=== PATIENT | female | born 1935 | race American Indian/Alaskan Native ===

== ENCOUNTER 2017-12-24 11:42 | Emergency (ER) | payer MEDICARE ==
[2017-12-24 12:25] LABS: Basophils % (Auto) 0.5 % (0.0-1.8); Eosinophils % (Auto) 0.2 % (0.0-4.3); Hematocrit 39.8 % (30.3-42.9); Hemoglobin 13.8 gm/dl (10.1-14.3); Lymphocytes # (Auto) 1.8 K/mm3 (1.2-5.4); Lymphocytes % (Auto) 23.4 % (13.4-35.0); Mean Corpuscular HGB Conc 35 % (30-34); Mean Corpuscular Hemoglobin 33 pg (28-32); Mean Corpuscular Volume 94 fl (79-97); Monocytes # (Auto) 0.4 K/mm3 (0.0-0.8); Monocytes % (Auto) 4.6 % (0.0-7.3); Platelet Count 266 K/mm3 (140-440); Red Blood Count 4.24 M/mm3 (3.65-5.03); Red Cell Distribution Width 14.2 % (13.2-15.2)
[2017-12-24 12:35] LABS: INR 0.93 (0.87-1.13); Partial Thromboplastin Time 25.1 Sec. (24.2-36.6)
[2017-12-24 12:47] LABS: Alanine Aminotransferase 15 units/L (7-56); Albumin 4.2 g/dL (3.9-5); BUN/Creatinine Ratio 20; Blood Urea Nitrogen 18 mg/dL (7-17); Hemolysis Index 11; Lipase 19 units/L (13-60)
--- NOTE | 2017-12-24 14:32 | Emergency Department Report ---
HPI - General Chief Complaint: GI Bleed Time Seen by Provider: 12/24/17 13:51 - HPI HPI: 82-year-old female presents to the emergency department with a complaint of a one-day history of rectal bleeding and some mild generalized abdominal discomfort. She had one episode of nausea and vomiting yesterday but that has since resolved. She denies any fever, dysuria, vaginal bleeding or discharge. She has a history of borderline diabetes, migraine headaches and hypertension. She does present with some elevated blood pressure despite taking her blood pressure medications this morning. She goes to [facility] for primary care. She does not have a field organizer. She has not taken anything for her symptoms prior to presentation. No recent travel or sick contacts at home. ED Past Medical Hx - Past Medical History Previous Medical History?: Yes Hx Hypertension: Yes Hx Diabetes: Yes (diet controlled) Hx Arthritis: Yes Hx Headaches / Migraines: Yes - Surgical History Past Surgical History?: Yes Additional Surgical History: fibroid removal - Social History Smoking Status: Never Smoker Substance Use Type: None - Medications Home Medications: Home Medications Medication Instructions Recorded Confirmed Last Taken Type Ciprofloxacin HCl [Ciprofloxacin 500 mg PO Q12H #14 tab 12/24/17 Unknown Rx TAB] metroNIDAZOLE [Flagyl TAB] 500 mg PO TID #21 tablet 12/24/17 Unknown Rx ED Review of Systems ROS: Stated complaint: BLOOD FROM BUTT Other details as noted in HPI Comment: All other systems reviewed and negative Constitutional: denies: chills, fever Eyes: denies: eye pain, eye discharge, vision change ENT: denies: ear pain, throat pain Respiratory: denies: cough, shortness of breath, wheezing Cardiovascular: denies: chest pain, palpitations Gastrointestinal: abdominal pain, nausea, vomiting, other (rectal bleeding) Genitourinary: denies: urgency, dysuria, discharge Musculoskeletal: denies: back pain, joint swelling, arthralgia Skin: denies: rash, lesions Neurological: denies: headache, weakness, paresthesias Physical Exam - Physical Exam Vital Signs: Vital Signs 12/24/17 12/24/17 11:50 13:58 Temperature 97.9 F Pulse Rate 85 74 Respiratory 16 20 Rate Blood Pressure 157/98 Blood Pressure 189/95 [Left] O2 Sat by Pulse 98 96 Oximetry Physical Exam: GENERAL: The patient is well-developed well-nourished. HENT: Normocephalic. Atraumatic. Patient has moist mucous membranes. EYES: Extraocular motions are intact. Pupils equal reactive to light bilaterally. NECK: Supple. Trachea is midline. CHEST/LUNGS: Clear to auscultation. There is no respiratory distress noted. HEART/CARDIOVASCULAR: Regular. There is no tachycardia. There is no murmur. ABDOMEN: Abdomen is soft. Mild generalized tenderness to palpation. No guarding. Patient has normal bowel sounds. There is no abdominal distention. SKIN: Skin is warm and dry. NEURO: The patient is awake, alert, and oriented. The patient is cooperative. The patient has no focal neurologic deficits. The patient has normal speech. MUSCULOSKELETAL: There is no tenderness or deformity. There is no limitation range of motion. There is no evidence of acute injury. RECTAL: No hemorrhoid or lesions. There is a small amount of gross blood seen that is positive on guaiac testing. ED Course Vital Signs 12/24/17 12/24/17 11:50 13:58 Temperature 97.9 F Pulse Rate 85 74 Respiratory 16 20 Rate Blood Pressure 157/98 Blood Pressure 189/95 [Left] O2 Sat by Pulse 98 96 Oximetry ED Medical Decision Making - Lab Data Result diagrams: 12/24/17 12:04 12/24/17 12:12 - EKG Data -: EKG Interpreted by Hi EKG shows normal: sinus rhythm, axis (left axis deviation), intervals ( prolonged MA interval, borderline prolonged QTC), QRS complexes, ST-T waves ( flattened T waves) Rate: normal - EKG Data When compared to previous EKG there are: previous EKG unavailable Interpretation: other (sinus rhythm, left axis deviation, prolonged MA interval , borderline prolonged QTC, flattened T waves) - Radiology Data Radiology results: report reviewed EXAM: CT ABDOMEN PELVIS W CON HISTORY: Abd pain, rectal bleeding TECHNIQUE: CT abdomen and pelvis with intravenous contrast PRIORS: None. FINDINGS: No acute abnormality identified in the lung bases. No focal abnormality identified within the liver parenchyma. The spleen demonstrates normal size and attenuation. No pancreatic abnormalities seen. The kidneys demonstrate symmetric contrast enhancement. No evidence of hydronephrosis. The adrenal glands are unremarkable Abdominal aorta is normal in caliber. No pathologically enlarged lymph nodes are identified. Trace of free fluid noted in the lower pelvis. No evidence of small bowel dilatation. There is focal edematous colonic wall thickening from the left transverse colon through the distal descending colon with adjacent fascial thickening and hazy inflammatory change. Urinary bladder is unremarkable. IMPRESSION: Findings most consistent with colitis involving the left colon Trace free fluid noted in the lower pelvis Transcribed By: JV Dictated By: JOCELYN GONZALEZ MD Electronically Authenticated By: JOCELYN GONZALEZ MD Signed Date/Time: 12/24/17 5045 - Medical Decision Making This patient presented with some rectal bleeding with bowel movements that started today as well as some mild abdominal discomfort. Her abdomen is soft, nondistended and has normal bowel sounds there is some mild tenderness to palpation. Patient's labs were unremarkable. Hemoglobin is greater than 13. There is no leukocytosis. Normal electrolytes, no renal insufficiency or significant glucose abnormalities. She has normal belly labs and normal coags. CT of the abdomen and pelvis with IV contrast shows some colitis from the transverse colon distally. This may be the source of the patient's rectal bleeding. However I explained that the patient will need a colonoscopy for further evaluation and rule out malignancy. I spoke with the field organizer coordinator of evaluation, Dr. Reese, who felt that if the patient is hemodynamically stable and the patient can be discharged home for outpatient follow-up on Cipro and Flagyl. Patient did have some elevated blood pressure came down to a more reasonable level with one dose of hydralazine. There is no tachycardia and the patient is afebrile. First and foremost, the patient repeatedly is saying that she does not want to be admitted to the hospital and says that she is willing to follow up outpatient, take the antibiotics compliantly, and return to the emergency department with any worsening of her bleeding, worsening of her abdominal pain, or with any acute distress. Secondly , the patient does not have any leukocytosis, tachycardia, fever and does not appear to have a toxic or rigid abdomen. For these reasons, I feel the patient is safe for discharge home. She was given the prescriptions for antibiotics and outpatient GI referral. - Differential Diagnosis diverticulosis, colitis, hemorrhoids, malignancy Critical Care Time: No Critical care attestation.: If time is entered above; I have spent that time in minutes in the direct care of this critically ill patient, excluding procedure time. ED Disposition Clinical Impression: Colitis, Rectal bleeding Disposition: - TO HOME OR SELFCARE Is pt being admited?: No Condition: Stable Instructions: Rectal Bleeding (ED), Infectious Colitis (ED) Additional Instructions: Take the antibiotics as prescribed. Follow-up with the field organizer as soon as possible. You will most likely need an outpatient colonoscopy to further evaluate the rectal bleeding. However you should return to the emergency department immediately with any increased rectal bleeding, development of fever, worsening of your symptoms, or any acute distress. Prescriptions: Ciprofloxacin HCl [Ciprofloxacin TAB] 500 mg PO Q12H #14 tab metroNIDAZOLE [Flagyl TAB] 500 mg PO TID #21 tablet Referrals: SAMMY REESE MD [Staff Physician] - [place] Forms: Accompanied Note Time of Disposition: 18:01
[2017-12-24] MEDS ORDERED: APRESOLINE IV ONE (14:37)
--- NOTE | 2017-12-24 17:14 | Cat Scan Report ---
FINAL REPORT EXAM: CT ABDOMEN PELVIS W CON HISTORY: Abd pain, rectal bleeding TECHNIQUE: CT abdomen and pelvis with intravenous contrast PRIORS: None. FINDINGS: No acute abnormality identified in the lung bases. No focal abnormality identified within the liver parenchyma. The spleen demonstrates normal size and attenuation. No pancreatic abnormalities seen. The kidneys demonstrate symmetric contrast enhancement. No evidence of hydronephrosis. The adrenal glands are unremarkable Abdominal aorta is normal in caliber. No pathologically enlarged lymph nodes are identified. Trace of free fluid noted in the lower pelvis. No evidence of small bowel dilatation. There is focal edematous colonic wall thickening from the left transverse colon through the distal descending colon with adjacent fascial thickening and hazy inflammatory change. Urinary bladder is unremarkable. IMPRESSION: Findings most consistent with colitis involving the left colon Trace free fluid noted in the lower pelvis
[2017-12-24] MEDS ORDERED: LEVAQUIN PO ONE (17:40)
[2017-12-24] MEDS ORDERED: FLAGYL PO ONE (17:41)
[2017-12-24 18:40] VITALS: BP 142/77
== END 2017-12-24 18:36 | disposition home or self-care (01) ==
LOC: ED 11:42
DX: K52.9 Noninfective gastroenteritis and colitis, unspecified (principal); I10 Essential (primary) hypertension; E11.9 Type 2 diabetes mellitus without complications; M19.90 Unspecified osteoarthritis, unspecified site; G43.909 Migraine, unspecified, not intractable, without status migrainosus
CPT/HCPCS: 36415; 74177; 80053; 83690; 85025; 85610; 85730; 86850; 86900; 86901; 93005; 93010; 96374; 99285; J0360; Q9967

== ENCOUNTER 2018-06-14 12:43 | Emergency (ER) | payer MEDICARE ==
--- NOTE | 2018-06-14 13:27 | Emergency Department Report ---
Chief Complaint: Pain General Stated Complaint: weakness Time Seen by Provider: 06/14/18 13:18 - HPI History of Present Illness: Pt comes to ER with generalized weakness and pain. Pt is a poor informant, and her daughter on initial exam is not at the bedside, but I am able to get the following: Saw her PCP last week and he gave her medication - unknown which- but she did not get filled. She can not tell me the name of her PCP. States she has a cough, chest pain, constipation, and progressive weakness for months. Denies fever, diarrhea or difficulty urinating. Pt states she is in the bed most of the time and can not even get up by herself. She lives with daughter who works. She states she is so weak she is afraid if she even tries to get up that she will fall. She states she has not eaten today. Given age, debility and comorbid conditions will send to ER for evaluation. Discussed with Dr. Chamorro. - Exam Vital Signs: Vital Signs 06/14/18 12:56 Temperature 98.6 F Pulse Rate 109 H Respiratory 20 Rate Blood Pressure 130/78 O2 Sat by Pulse 99 Oximetry MSE screening note: Focused history and physical exam performed. Due to findings the following was ordered: ED Disposition for MSE Condition: Stable
[2018-06-14] MEDS ORDERED: TORADOL IV ONE (14:03)
[2018-06-14] MEDS ORDERED: SOLU-Medrol IV ONE (14:03)
[2018-06-14] MEDS ORDERED: ULTRAM PO ONE (14:04)
--- NOTE | 2018-06-14 14:12 | Emergency Department Report ---
ED General Adult HPI - General Chief complaint: Pain General Stated complaint: weakness Time Seen by Provider: 06/14/18 13:18 Source: patient, EMS Mode of arrival: Wheelchair Limitations: No Limitations - History of Present Illness Initial comments: 82-year-old female presents to ED with bilateral shoulder pain for 3 weeks. Patient reports has history of arthritis, states right shoulder is worse than left. Patient reports pain radiates down the bilateral elbows. Patient states she is unable to lift her arms above her head secondary to pain. Also reports bilateral hip pain. States it is difficult to get bed secondary to the pain, states her daughter has to help her. Denies fall. She is currently taking an "arthritis medicine" but it is not helping with her pain. Patient also states she recently developed a cough, feels as if she has "pulled muscle" from coughing. Denies fever, chest pain, vomiting, diarrhea. PCP: Dr Eduardo Moreno -: week(s) (3) Location: left, right, upper extremity, lower extremity Quality: aching, constant Consistency: constant Improves with: immobilization Worsens with: movement Associated Symptoms: cough, weakness. denies: chest pain, fever/chills, nausea/vomiting, shortness of breath, syncope Treatments Prior to Arrival: other ("arthritis medicine") - Related Data Previous Rx's Medication Instructions Recorded Last Taken Type Ciprofloxacin HCl [Ciprofloxacin 500 mg PO Q12H #14 tab 12/24/17 Unknown Rx TAB] metroNIDAZOLE [Flagyl TAB] 500 mg PO TID #21 tablet 12/24/17 Unknown Rx Naproxen [Naprosyn] 500 mg PO BID #20 tablet 06/14/18 Unknown Rx predniSONE [Prednisone] 50 mg PO DAILY #5 tablet 06/14/18 Unknown Rx traMADol [Ultram] 50 mg PO Q6HR PRN #7 tablet 06/14/18 Unknown Rx Allergies Allergy/AdvReac Type Severity Reaction Status Date / Time No Known Allergies Allergy Verified 06/14/18 12:56 ED Review of Systems ROS: Stated complaint: weakness Other details as noted in HPI Comment: All other systems reviewed and negative Constitutional: denies: chills, fever Respiratory: cough. denies: shortness of breath Cardiovascular: denies: chest pain Gastrointestinal: constipation. denies: abdominal pain, nausea, vomiting, diarrhea Musculoskeletal: arthralgia Neurological: denies: headache, weakness, numbness ED Past Medical Hx - Past Medical History Hx Hypertension: Yes Hx Diabetes: Yes (diet controlled) Hx Arthritis: Yes Hx Headaches / Migraines: Yes - Surgical History Additional Surgical History: fibroid removal - Social History Smoking Status: Never Smoker Substance Use Type: None - Medications Home Medications: Home Medications Medication Instructions Recorded Confirmed Last Taken Type Ciprofloxacin HCl [Ciprofloxacin 500 mg PO Q12H #14 tab 12/24/17 Unknown Rx TAB] metroNIDAZOLE [Flagyl TAB] 500 mg PO TID #21 tablet 12/24/17 Unknown Rx Naproxen [Naprosyn] 500 mg PO BID #20 tablet 06/14/18 Unknown Rx predniSONE [Prednisone] 50 mg PO DAILY #5 tablet 06/14/18 Unknown Rx traMADol [Ultram] 50 mg PO Q6HR PRN #7 tablet 06/14/18 Unknown Rx ED Physical Exam - General Limitations: No Limitations General appearance: alert, in no apparent distress - Head Head exam: Present: atraumatic, normocephalic - Eye Eye exam: Present: normal appearance - ENT ENT exam: Present: mucous membranes moist - Neck Neck exam: Present: normal inspection - Respiratory Respiratory exam: Present: normal lung sounds bilaterally. Absent: respiratory distress - Cardiovascular Cardiovascular Exam: Present: normal rhythm, tachycardia - GI/Abdominal GI/Abdominal exam: Present: soft. Absent: distended, tenderness - Extremities Exam Extremities exam: Present: other (decreased passive and active ROM secondary to pain in bilateral shoulders; pt able to slowly flex and extend at bilat knees and hips, also decreased ROM secondary to pain) ED Course Vital Signs 06/14/18 12:56 Temperature 98.6 F Pulse Rate 109 H Respiratory 20 Rate Blood Pressure 130/78 O2 Sat by Pulse 99 Oximetry ED Medical Decision Making - Radiology Data Radiology results: report reviewed, image reviewed - Medical Decision Making 82-year-old female with history of arthritis presents to ED with bilateral shoulder and head pain 3 weeks. Patient taking "arthritis medication" states that is not helping. Patient given solumedrol, toradol an ultram. States pain is improved at this time. Labs were initially ordered by initial provider, however, pt refused IV stick. Pt does not require labs, as symptoms seem to be due to exacerbation of her arthritis pain. Pt is not having chest pain. Advised follow-up with her PCP. Daughter present at bedside. Will discharge at this time. Return precautions given. - Differential Diagnosis arthritis Critical care attestation.: If time is entered above; I have spent that time in minutes in the direct care of this critically ill patient, excluding procedure time. ED Disposition Clinical Impression: Arthritis Disposition: - TO HOME OR SELFCARE Is pt being admited?: No Condition: Stable Instructions: Osteoarthritis (ED) Prescriptions: Naproxen [Naprosyn] 500 mg PO BID #20 tablet predniSONE [Prednisone] 50 mg PO DAILY #5 tablet traMADol [Ultram] 50 mg PO Q6HR PRN #7 tablet PRN Reason: Pain Referrals: PRIMARY CAREMD [Referring] - 3-5 Days TASHA DIAZ MD [Staff Physician] - 3-5 Days Time of Disposition: 15:29
--- NOTE | 2018-06-14 14:40 | XRay Report ---
AP CHEST: HISTORY: Cough AP view of the chest demonstrates a normal mediastinal and cardiac contour with clear lungs and normal bony and soft tissue structures. IMPRESSION: No acute cardiopulmonary process.
[2018-06-14 16:30] VITALS: BP 141/76
== END 2018-06-14 16:33 | disposition home or self-care (01) ==
LOC: ED 12:43
DX: M19.90 Unspecified osteoarthritis, unspecified site (principal); I10 Essential (primary) hypertension; E11.9 Type 2 diabetes mellitus without complications; G43.909 Migraine, unspecified, not intractable, without status migrainosus
CPT/HCPCS: 71045; 96374; 96375; 99284; J1885; J2930